=== PATIENT | female | born 1985 | race Caucasian/White ===

== ENCOUNTER → 2016-08-18 | Outpatient (CLI) | payer OTHER ==
--- NOTE | 2016-08-18 15:38 | RAD ---
Indication: Pelvic pain. The uterus measures 6.5 x 4.1 x 3.9 cm. The endometrium is 10 mm in thickness. No uterine mass is detected. There appear to be some calcifications in the region of the cervix, may represent synechiae. The right ovary measures 3.5 x 1.6 x 3.3 cm and the left ovary measures 2.9 x 1.7 x 2.5 cm. There is a probable complex cyst of the right ovary approximately 1.8 cm in size. There is peripheral vascularity but no internal vascularity is seen. There is blood flow to both ovaries. There is free fluid in the cul-de-sac. Impression: Essentially unremarkable pelvic ultrasound apart from a small complex cyst of the right ovary. Follow-up could be performed to confirm clearing. The study is otherwise unremarkable.
== END | disposition home or self-care (01) ==
LOC: US 14:39
PROVIDERS: ATTEND Urology
DX: R10.2 Pelvic and perineal pain (principal); N83.201 Unspecified ovarian cyst, right side
CPT/HCPCS: 76830; 76856

== ENCOUNTER → 2019-08-10 | Outpatient (CLI) | payer OTHER ==
--- NOTE | 2019-08-10 11:07 | KCIC ---
ABDOMEN COMPLETE Realtime grayscale images of the abdomen with color and pulsed doppler utilized as appropriate. History: Abdominal pain, epigastric pain Comparison: None. Findings: The liver is normal in appearance and echogenicity. No intrahepatic biliary ductal dilatation or mass is seen. No gallstones, pericholecystic fluid, or gallbladder wall thickening are seen. The common bile duct is normal in diameter and measures 0.2 cm. Portal Vein flow is hepatopetal. The pancreas is normal in appearance, although the tail is not well visualized. The aorta and IVC are normal diameter where visualized. The right kidney is normal in appearance, measuring 9.9 cm in length. The left kidney is normal in appearance, measuring 9.3 cm in length. No hydronephrosis or perinephric fluid are seen bilaterally. The spleen is normal in appearance and measures 9.6 cm. Impression: Unremarkable ultrasound examination of the abdomen. Electronically signed by: Nikko Zamora MD (08/10/2019 11:04 AM) [id number]
== END | disposition home or self-care (01) ==
LOC: KCIC US 07:50
PROVIDERS: ATTEND Family Medicine
DX: R10.13 Epigastric pain (principal)
CPT/HCPCS: 76700